=== PATIENT | male | born 1965 | race Caucasian/White ===

== ENCOUNTER 2022-04-10 19:27 | Emergency (ER) | payer OTHER ==
[2022-04-10] MEDS ORDERED: VIBRAMYCIN100 MG PO (20:23)
[2022-04-10] MEDS ORDERED: NORCO 5-325 TA1 EACH PO (20:23)
== END 2022-04-10 21:04 | disposition home or self-care (01) ==
LOC: FER 19:27
DX: S62.522B Displaced fracture of distal phalanx of left thumb, initial encounter for open fracture (principal); Z23 Encounter for immunization; Z87.891 Personal history of nicotine dependence; X58.XXXA Exposure to other specified factors, initial encounter; Y92.009 Unspecified place in unspecified non-institutional (private) residence as the place of occurrence of the external cause
CPT/HCPCS: 73130; 90715; J2001